=== PATIENT | female | born 1960 | race Caucasian/White ===

== ENCOUNTER 2017-09-15 13:07 | Emergency (ER) | payer MEDICARE, OTHER ==
[~2017-09-15] VITALS: Ht 162.6 cm; Wt 54.5 kg
[~2017-09-15 13:07] MED LIST: ALBU6.7H INH; PRED20 PO; ZITH250T PO
[2017-09-15 13:37] VITALS: BP 107/61; PULSE 76; RESP 18; TEMP 98.3; O2SAT 99
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
[2017-09-15] MEDS ORDERED: ROBA750T PO (16:45)
== END 2017-09-15 16:51 | disposition home or self-care (01) ==
LOC: NEPK 13:07
DX: S16.1XXA Strain of muscle, fascia and tendon at neck level, initial encounter (principal); M25.511 Pain in right shoulder; H57.8 Other specified disorders of eye and adnexa; Y04.2XXA Assault by strike against or bumped into by another person, initial encounter; F17.210 Nicotine dependence, cigarettes, uncomplicated; Z86.73 Personal history of transient ischemic attack (TIA), and cerebral infarction without residual deficits; Z79.899 Other long term (current) drug therapy
CPT/HCPCS: 99283

== ENCOUNTER 2017-10-22 23:41 | Emergency (ER) | payer MEDICARE ==
[~2017-10-22] VITALS: Ht 162.6 cm; Wt 58.0 kg
[~2017-10-22 23:41] MED LIST changes: -ALBU6.7H INH; -PRED20 PO; +ROBA750T PO; -ZITH250T PO
[2017-10-22 23:44] VITALS: BP 142/72; PULSE 85; RESP 14; TEMP 97.7; O2SAT 97
[2017-10-23] MEDS ORDERED: KETOROLAC TROMETHAMINE 30 MG/ML (IVP) VIAL IV PUSH ONE (00:15)
[2017-10-23] MEDS ORDERED: LORazepam 1 MG TAB PO ONE (00:15)
[2017-10-23 00:38] LABS: HEMATOCRIT 38.5 % (35.0-46.0); HEMOGLOBIN 13.2 GM/DL (11.6-15.3); MEAN CELL VOLUME 81.4 FL (80.0-100.0); MEAN CORPUSCULAR HEMOGLOBIN 27.8 PG (27.0-34.0); MEAN CORPUSCULAR HGB CONC 34.2 % (32.0-36.0); MEAN PLATELET VOLUME 7.3 FL (7.0-11.0); PLATELET COUNT 352 TH/MM3 (150-450); RED BLOOD COUNT 4.73 MIL/MM3 (4.00-5.30); RED CELL DISTRIBUTION WIDTH 13.7 % (11.6-17.2); WHITE BLOOD COUNT 13.1 TH/MM3 (4.0-11.0)
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
[2017-10-23 01:00] LABS: BICARBONATE 24.3 MEQ/L (21.0-32.0); BLOOD UREA NITROGEN 24 MG/DL (7-18); CALCIUM 8.5 MG/DL (8.5-10.1); CHLORIDE 109 MEQ/L (98-107); CREATININE 0.81 MG/DL (0.50-1.00); GLOMERULAR FILTRATION RATE 73 ML/MIN (>89); GLUCOSE,RANDOM 120 MG/DL (74-106); SODIUM (NA) 144 MEQ/L (136-145)
[2017-10-23 01:03] LABS: TROPONIN I LESS THAN 0.02 NG/ML (0.02-0.05)
--- NOTE | 2017-10-23 01:09 | RADRPT ---
EXAM DATE: 10/23/2017 1:03 AM EDT AGE/SEX: 57 years / Female INDICATIONS: Chest pain. CLINICAL DATA: This is the patient's initial encounter. Patient reports that signs and symptoms have been present for 1 day and indicates a pain score of 8/10. MEDICAL/SURGICAL HISTORY: None. None. COMPARISON: [facility] [place], CHEST SINGLE AP, 12/12/2014. . FINDINGS: The lungs are clear without infiltrate, nodule, or mass. There is no appreciable pleural effusion for technique. Heart and mediastinum are unremarkable. CONCLUSION: No acute cardiopulmonary disease. Electronically signed by: Naty Palmer MD 10/23/2017 1:07 AM EDT
[2017-10-23] MEDS ORDERED: POTASSIUM CHLORIDE 10 MEQ CONTROLLED RELEASE TAB PO ONE (01:15)
[2017-10-23] MEDS ORDERED: SODIUM CHLOR 0.9% 1000 ML INJ 1,000 ML IV ONE (01:15)
[2017-10-23 01:16] VITALS: RESP 16
[2017-10-23] MEDS ORDERED: CEPHALEXIN MONOHYDRATE 500 MG CAP PO ONE (01:30)
[2017-10-23] MEDS ORDERED: metroNIDAZOLE 500 MG TAB PO ONE (01:30)
[2017-10-23 01:34] LABS: BANDS 1 % (0-6); LYMPHOCYTES 47 % (9-44); MONOCYTES 1 % (0-8); NEUTROPHIL # MANUAL DIFF 6.8 TH/MM3 (1.8-7.7); POLYS (SEG NEUTROPHILS) 51 % (16-70)
--- NOTE | 2017-10-23 01:37 | PD ---
Physical Exam Date Seen by Provider: October 23, 2017 Time Seen by Provider: 01:34 Narrative For full history and physical examination please see previous providers note. I assumed care of this patient change his shift, at that time labs are pending. Data Data Last Documented VS Vital Signs Date Time Temp Pulse Resp B/P (MAP) Pulse Ox O2 Delivery O2 Flow Rate FiO2 10/23/17 01:16 16 10/22/17 23:44 97.7 85 142/72 (95) 97 Orders Orders Electrocardiogram (10/23/17 00:15) Basic Metabolic Panel (Bmp) (10/23/17 00:15) Complete Blood Count With Diff (10/23/17 00:15) Troponin I (10/23/17 00:15) Chest, Single Ap (10/23/17 00:15) Ketorolac Inj (Toradol Inj) (10/23/17 00:15) Lorazepam (Ativan) (10/23/17 00:15) Group A Rapid Strep Screen (10/23/17 00:29) Strep Culture (Group A) (10/23/17 00:40) Potassium Chloride (Kcl) (10/23/17 01:15) Sodium Chlor 0.9% 1000 Ml Inj (Ns 1000 M (10/23/17 01:15) Metronidazole (Flagyl) (10/23/17 01:30) Cephalexin (Keflex) (10/23/17 01:30) Ed Discharge Order (10/23/17 01:22) Labs Laboratory Tests Test 10/23/17 00:30 White Blood Count 13.1 TH/MM3 Red Blood Count 4.73 MIL/MM3 Hemoglobin 13.2 GM/DL Hematocrit 38.5 % Mean Corpuscular Volume 81.4 FL Mean Corpuscular Hemoglobin 27.8 PG Mean Corpuscular Hemoglobin Concent 34.2 % Red Cell Distribution Width 13.7 % Platelet Count 352 TH/MM3 Mean Platelet Volume 7.3 FL CBC Comment AUTO DIFF Blood Urea Nitrogen 24 MG/DL Creatinine 0.81 MG/DL Random Glucose 120 MG/DL Calcium Level 8.5 MG/DL Sodium Level 144 MEQ/L Potassium Level 3.3 MEQ/L Chloride Level 109 MEQ/L Carbon Dioxide Level 24.3 MEQ/L Anion Gap 11 MEQ/L Estimat Glomerular Filtration Rate 73 ML/MIN Troponin I LESS THAN 0.02 NG/ML [facility] Medical Record Reviewed: Yes Supervised Visit with MELINDA: Yes Interpretation(s) Last Impressions Chest X-Ray 10/23/17 0015 Signed Impressions: CONCLUSION: No acute cardiopulmonary disease. Laboratory Tests Test 10/23/17 00:30 White Blood Count 13.1 TH/MM3 Red Blood Count 4.73 MIL/MM3 Hemoglobin 13.2 GM/DL Hematocrit 38.5 % Mean Corpuscular Volume 81.4 FL Mean Corpuscular Hemoglobin 27.8 PG Mean Corpuscular Hemoglobin Concent 34.2 % Red Cell Distribution Width 13.7 % Platelet Count 352 TH/MM3 Mean Platelet Volume 7.3 FL CBC Comment AUTO DIFF Blood Urea Nitrogen 24 MG/DL Creatinine 0.81 MG/DL Random Glucose 120 MG/DL Calcium Level 8.5 MG/DL Sodium Level 144 MEQ/L Potassium Level 3.3 MEQ/L Chloride Level 109 MEQ/L Carbon Dioxide Level 24.3 MEQ/L Anion Gap 11 MEQ/L Estimat Glomerular Filtration Rate 73 ML/MIN Troponin I LESS THAN 0.02 NG/ML Vital Signs Date Time Temp Pulse Resp B/P (MAP) Pulse Ox O2 Delivery O2 Flow Rate FiO2 10/23/17 01:16 16 10/22/17 23:44 97.7 85 14 142/72 (95) 97 Narrative Course For full H&P please see previous providers note. I assumed care of this patient for my attending physician at the end of her shift. Plan of care was discussed, labs are reviewed, no acute findings identified. Patient's potassium was 3.3, or replacement ordered. BUN was 24, patient will be given a liter of IV fluids. Discussed findings with patient and her spouse. Patient was encouraged to return to emergency department any new or worsening symptoms, she was reassured at this time that there were no acute findings to suggest a cardiac etiology for her symptoms. Patient was encouraged to follow-up with her primary doctor. Patient stable for discharge. Diagnosis Primary Impression: Atypical chest pain Referrals: Primary Care Physician 1 day Patient Instructions: Chest Pain (ED), General Instructions, Noncardiac Chest Pain (ED) Additional Instruction: Follow-up with your primary doctor in 1-2 days Return to emergency department for any new or worsening symptoms Med/Other Pt SpecificInfo: No Change to Meds Disposition: 01 DISCHARGE HOME Condition: Stable Vanessa Alvarenga October 23, 2017 01:37
--- NOTE | 2017-10-23 14:44 | EKG ---
Date Performed: 10/23/2017 Time Performed: 00:40:31 PTAGE: 57 years EKG: Sinus rhythm WITH FIRST DEGREE AV BLOCK ABNORMAL ECG Since the PREVIOUS TRACING , no significant change noted PREVIOUS TRACIN12/12/2014 17.49 DOCTOR: Esvin Olea Interpretating Date/Time 10/23/2017 14:42:57
== END 2017-10-23 02:00 | disposition home or self-care (01) ==
LOC: NEPD 23:41
DX: R07.89 Other chest pain (principal); F17.210 Nicotine dependence, cigarettes, uncomplicated
CPT/HCPCS: 71045; 80048; 84484; 85007; 85027; 87081; 87880; 93005; 96374; 99285; J1885; J7030